=== PATIENT | female | born 1990 | race Caucasian/White ===

== ENCOUNTER 2020-12-25 20:08 | Inpatient (IN) | payer OTHER ==
[2020-12-25 20:49] LABS: BILIRUBIN NEGATIVE (NEGATIVE); BLOOD NEGATIVE Ery/uL (NEGATIVE); CLARITY CLEAR (CLEAR); COLOR YELLOW (YELLOW); GLUCOSE (U) NORMAL (NORMAL); HCT 41.1 % (37.0-47.0); HGB 13.9 g/dl (12.5-16.0); LEUKOCYTES NEGATIVE Leu/uL (NEGATIVE); MCH 30.5 pg (25.0-31.0); MCHC 33.8 g/dL (32.0-36.0); MCV 90.3 fL (78.0-100.0); MPV 10.5 fL (6.0-9.5); NITRITE NEGATIVE (NEGATIVE); PROTEIN NEGATIVE (NEGATIVE); RBC 4.55 M/uL (4.20-5.40); RDW 12.6 % (11.5-14.0); UROBILINOGEN 0.2 mg/dL (0.2-1.0); WBC 19.3 K/uL (4.0-10.5); pH 6.5 (5.0-9.0)
[2020-12-27 06:18] LABS: HCT 24.6 % (37.0-47.0); MCH 31.3 pg (25.0-31.0); MCHC 33.3 g/dL (32.0-36.0); MCV 93.9 fL (78.0-100.0); MPV 10.7 fL (6.0-9.5); RBC 2.62 M/uL (4.20-5.40); RDW 12.8 % (11.5-14.0); WBC 17.7 K/uL (4.0-10.5)
[2020-12-27 06:21] LABS: HGB 8.2 g/dl (12.5-16.0)
== END 2020-12-28 11:25 | disposition home or self-care (01) | DRG 787 ==
LOC: FOB 20:08
PROVIDERS: Obstetrics & Gynecology; ADMIT Obstetrics & Gynecology
PROC: 10D00Z1 Extraction of Products of Conception, Low, Open Approach (ICD-10-PCS; principal; 2020-12-25)
DX: O77.0 Labor and delivery complicated by meconium in amniotic fluid (principal); D62 Acute posthemorrhagic anemia; Z3A.40 40 weeks gestation of pregnancy; Z37.0 Single live birth; O90.81 Anemia of the puerperium; Z20.822 Contact with and (suspected) exposure to COVID-19
CPT/HCPCS: 36415; 81003; 86850; 86900; 86901; J0456; J0690; J1200; J1885; J2274; J2300; J2370; J2405; J2916; J3105; J7050; J7120; U0002